=== PATIENT | male | born 1990 | race African-American/Black ===

== ENCOUNTER 2018-01-25 20:14 | Emergency (ER) | payer BC, SELFPAY ==
[2018-01-25] MEDS ORDERED: MORPHINE 4 MG/ML SYR ONE ×2 (20:48→23:39)
[2018-01-25] MEDS ORDERED: ONDANSETRON 4 MG/2 ML VIAL ONE (20:48)
--- NOTE | 2018-01-25 21:47 | RAD REPORT ---
EXAM DESCRIPTION: RAD - Humerus Right - 01/25/2018 9:17 pm CLINICAL HISTORY: Right arm pain status post injury FINDINGS: An oblique mildly to moderately displaced fracture involves the distal humeral shaft. Anoop ency surrounding the fracture site raises the possibility that this is a pathologic fracture
--- NOTE | 2018-01-25 22:27 | ER ---
Nurse's Notes [facility] Name: Marvin Hilario Age: 27 yrs Sex: Male : 1990 Arrival Date: 01/25/2018 Time: 20:15 Bed 4 Private MD: Diagnosis: Pathological fracture, humerus Presentation: 01/25 20:23 Presenting complaint: Patient states: playing softball, threw ball with right arm. pt ak1 stated he "felt and heard at snap" pain, swelling to right upper arm at 1930. Transition of care: patient was not received from another setting of care. Onset of symptoms was January 25, 2018. Risk Assessment: Do you want to hurt yourself or someone else? Patient reports no desire to harm self or others. Initial Sepsis Screen: Does the patient meet any 2 criteria? No. Patient's initial sepsis screen is negative. Does the patient have a suspected source of infection? No. Patient's initial sepsis screen is negative. Care prior to arrival: ice applied to side and arm in sling. 20:23 Method Of Arrival: Ambulatory ak1 20:23 Acuity: JOAQUIN 3 ak1 Triage Assessment: 20:25 General: Appears in no apparent distress. Behavior is calm, cooperative. ak1 20:25 Pain: Complains of pain in right bicep and right tricep. EENT: No signs and/or symptoms ak1 were reported regarding the EENT system. Neuro: No deficits noted. Cardiovascular: No deficits noted. Respiratory: No deficits noted. GI: No signs and/or symptoms were reported involving the gastrointestinal system. : No signs and/or symptoms were reported regarding the genitourinary system. Derm: No signs and/or symptoms reported regarding the dermatologic system. Musculoskeletal: Range of motion: intact in right shoulder and right elbow Swelling present in right bicep and right tricep. Historical: - Allergies: 20:25 No Known Allergies; ak1 - Home Meds: 20:25 None [Active]; ak1 - PMHx: 20:25 None; ak1 - PSHx: 20:25 oral sx; ak1 - Immunization history:: Adult Immunizations unknown. - Social history:: Smoking status: Patient uses tobacco products, smokes one-half pack cigarettes per day. - Ebola Screening: : No symptoms or risks identified at this time. Screenin:26 Abuse screen: Denies threats or abuse. Denies injuries from another. Nutritional ak1 screening: No deficits noted. Tuberculosis screening: No symptoms or risk factors identified. Fall Risk None identified. Assessment: 20:35 General: Appears in no apparent distress. comfortable, Behavior is calm, cooperative, aa1 appropriate for age. Pain: Complains of pain in right tricep and right bicep Pain currently is 7 out of 10 on a pain scale. Neuro: Level of Consciousness is awake, alert, obeys commands, Oriented to person, place, time, situation. Cardiovascular: Pulses are 3+ in right radial artery and left radial artery. Respiratory: Airway is patent is compromised Respiratory effort is even, unlabored, Respiratory pattern is regular, symmetrical. GI: No signs and/or symptoms were reported involving the gastrointestinal system. : No signs and/or symptoms were reported regarding the genitourinary system. EENT: No signs and/or symptoms were reported regarding the EENT system. Derm: Skin is intact, is healthy with good turgor, Skin is pink, warm \\T\\ dry. Musculoskeletal: Circulation, motion, and sensation intact. Capillary refill < 3 seconds, Range of motion: limited in right shoulder and right elbow Swelling present in right bicep. 21:34 Reassessment: Patient appears in no apparent distress at this time. Patient and/or aa1 family updated on plan of care and expected duration. Pain level reassessed. Patient is alert, oriented x 3, equal unlabored respirations, skin warm/dry/pink. Awaiting provider reassessment. 22:30 Reassessment: Patient appears in no apparent distress at this time. Patient and/or aa1 family updated on plan of care and expected duration. Pain level reassessed. Patient is alert, oriented x 3, equal unlabored respirations, skin warm/dry/pink. Transfer pending. 23:17 Reassessment: Patient appears in no apparent distress at this time. Patient and/or aa1 family updated on plan of care and expected duration. Pain level reassessed. Patient is alert, oriented x 3, equal unlabored respirations, skin warm/dry/pink. Report given to Eloisa Lucio RN at [facility]. 23:37 Reassessment: Patient appears in no apparent distress at this time. Patient is alert, aa1 oriented x 3, equal unlabored respirations, skin warm/dry/pink. [facility] present for transfer. Vital Signs: 20:22 BP 126 / 74; Pulse 93; Resp 20; Temp 98.5; Pulse Ox 98% on R/A; Weight 81.65 kg (R); ak1 Height 5 ft. 7 in. (170.18 cm) (R); Pain 7/10; 21:34 BP 139 / 94; Pulse 62; Resp 16; Pulse Ox 97% on R/A; Pain 3/10; aa1 22:30 BP 136 / 96; Pulse 60; Resp 18; Pulse Ox 99% on R/A; aa1 23:20 BP 126 / 87; Pulse 58; Resp 16; Pulse Ox 99% on R/A; Pain 3/10; aa1 20:22 Body Mass Index 28.19 (81.65 kg, 170.18 cm) ak1 ED Course: 20:15 Patient arrived in ED. es 20:23 Henry Hamilton PA is PHCP. jmm 20:23 Mehran Aguilar MD is Attending Physician. jmm 20:24 Triage completed. ak1 20:25 Arm band placed on Patient placed in an exam room, on a stretcher, Patient notified of ak1 wait time. 20:26 Patient has correct armband on for positive identification. Bed in low position. Call ak1 light in reach. Side rails up X 1. Adult w/ patient. 20:33 Inserted saline lock: 18 gauge in left antecubital area, using aseptic technique. Blood jw5 collected. 20:56 Starla Saleh, RN is Primary Nurse. aa1 21:17 Humerus Right XRAY In Process Unspecified. EDMS 22:23 Orthoglass splint: Coaptation splint applied on right arm. Sling applied to right arm. jw5 23:37 No provider procedures requiring assistance completed. Patient transferred, IV remains aa1 in place. Administered Medications: 20:45 Drug: morphine 4 mg Route: IVP; Site: left antecubital; aa1 23:24 Follow up: Response: No adverse reaction; Pain is decreased aa1 20:45 Drug: Zofran 4 mg Route: IVP; Site: left antecubital; aa1 23:25 Follow up: Response: No adverse reaction aa1 23:37 Drug: morphine 4 mg Route: IVP; Site: left antecubital; aa1 23:37 Follow up: Response: Medication administered at discharge. aa1 Outcome: 22:27 ER care complete, transfer ordered by MD. chau 23:37 Transferred by ground EMS to [facility], Transfer form completed. aa1 23:37 Condition: stable 23:37 Instructed on the need for transfer, Demonstrated understanding of instructions. 23:38 Patient left the ED. aa1 Signatures: Dispatcher [employer] Starla Sotomayor, RN RN aa1 Henry Hamilton PA PA jmm Salyer, Edna es Krenek, Amber RN RN ak1 Sary Hansen jw5 Corrections: (The following items were deleted from the chart) 23:25 23:22 Orthoglass splint: aa1 jw5
--- NOTE | 2018-01-25 22:27 | EDPHYS ---
Physician Documentation [facility] Name: Marvin Hilario Age: 27 yrs Sex: Male : 1990 Arrival Date: 01/25/2018 Time: 20:15 Bed 4 Private MD: ED Physician Mehran Aguilar HPI: 01/25 20:26 This 27 yrs old Black Male presents to ER via Ambulatory with complaints of Arm Injury. jmm 20:26 The patient or guardian complains of injury, pain. The complaints affect the right jmm bicep. Onset: The symptoms/episode began/occurred acutely, just prior to arrival. This is a 27 year old male with no chronic medical conditions that presents to the ED with right arm pain which developed after throwing a baseball. patient states that he felt a snap. denies other injury.. Historical: - Allergies: 20:25 No Known Allergies; ak1 - Home Meds: 20:25 None [Active]; ak1 - PMHx: 20:25 None; ak1 - PSHx: 20:25 oral sx; ak1 - Immunization history:: Adult Immunizations unknown. - Social history:: Smoking status: Patient uses tobacco products, smokes one-half pack cigarettes per day. - Ebola Screening: : No symptoms or risks identified at this time. ROS: 20:26 Constitutional: Negative for fever, chills, and weight loss, Cardiovascular: Negative jmm for chest pain, palpitations, and edema, Respiratory: Negative for shortness of breath, cough, wheezing, and pleuritic chest pain, Abdomen/GI: Negative for abdominal pain, nausea, vomiting, diarrhea, and constipation, Back: Negative for injury and pain, : Negative for injury, bleeding, discharge, and swelling. 20:26 MS/extremity: Positive for pain. 20:26 All other systems are negative. Exam: 20:26 Head/Face: atraumatic. Chest/axilla: Normal chest wall appearance and motion. jmm Cardiovascular: Regular rate and rhythm. No edema appreciated Respiratory: Normal respirations, no respiratory distress appreciated 20:26 Constitutional: The patient appears in no acute distress, alert, awake. 20:26 Musculoskeletal/extremity: crepitus noted at the mid humeral region, area is tender to palpation, full radial pulse, radial, ulnar, and median nervic intact, compartments are soft. . 20:26 Skin: Appearance: Color: normal in color. 20:26 Neuro: Orientation: is normal, Mentation: is normal, Memory: is normal. 20:26 Psych: Behavior/mood is pleasant, cooperative. Vital Signs: 20:22 BP 126 / 74; Pulse 93; Resp 20; Temp 98.5; Pulse Ox 98% on R/A; Weight 81.65 kg (R); ak1 Height 5 ft. 7 in. (170.18 cm) (R); Pain 7/10; 21:34 BP 139 / 94; Pulse 62; Resp 16; Pulse Ox 97% on R/A; Pain 3/10; aa1 22:30 BP 136 / 96; Pulse 60; Resp 18; Pulse Ox 99% on R/A; aa1 23:20 BP 126 / 87; Pulse 58; Resp 16; Pulse Ox 99% on R/A; Pain 3/10; aa1 20:22 Body Mass Index 28.19 (81.65 kg, 170.18 cm) ak1 Procedures: 22:27 Splinting: Splint applied to right arm using sling, coaptation splint. applied by kandi myself. tech. Examined by me, post splint application: neurovascular intact, 2+ distal pulses palpable, brisk capillary refill noted, Patient tolerated well. MDM: 20:26 Patient medically screened. [facility] 22:12 Data reviewed: vital signs, nurses notes. [facility] 22:25 Counseling: I had a detailed discussion with the patient and/or guardian regarding: the [facility] historical points, exam findings, and any diagnostic results supporting the discharge/admit diagnosis, radiology results, the need to transfer to another facility. ED course: Transfer was accepted by Dr. Dickens [facility]. 01/25 20:31 Order name: Humerus Right XRAY; Complete Time: 21:48 [facility] 01/25 21:48 Order name: Splint; Complete Time: 23:24 [facility] 01/25 21:48 Order name: Sling; Complete Time: 23:24 [facility] Administered Medications: 20:45 Drug: morphine 4 mg Route: IVP; Site: left antecubital; aa1 23:24 Follow up: Response: No adverse reaction; Pain is decreased aa1 20:45 Drug: Zofran 4 mg Route: IVP; Site: left antecubital; aa1 23:25 Follow up: Response: No adverse reaction aa1 23:37 Drug: morphine 4 mg Route: IVP; Site: left antecubital; aa1 23:37 Follow up: Response: Medication administered at discharge. aa1 Disposition: 01/26 06:38 Co-signature as Attending Physician, Mehran Aguilar MD I agree with the assessment and cody plan of care. Disposition: 01/25/18 22:27 Transfer ordered to [facility]. Diagnosis is Pathological fracture, humerus. - Reason for transfer: Higher level of care. - Accepting physician is Dr. Dickens. - Condition is Stable. - Problem is new. - Symptoms are unchanged. Signatures: Dispatcher [employer] EDMS Starla Saleh, RN RN aa1 Mehran Aguilar MD MD cha Mickail, Joel, PA PA Pooja Jay RN RN ak1 Corrections: (The following items were deleted from the chart) 01/25 23:38 22:27 01/25/2018 22:27 Transfer ordered to [facility]. aa1 Diagnosis is Pathological fracture, humerus. Reason for transfer: Higher level of care. Accepting physician is Dr. Dickens. Condition is Stable. Problem is new. Symptoms are unchanged. kandi
== END 2018-01-25 23:38 | disposition short-term general hospital (02) ==
LOC: ER 20:14
PROC: 2W38X1Z Immobilization of Right Upper Extremity using Splint (ICD-10-PCS; principal; 2018-01-25)
DX: M84.421A Pathological fracture, right humerus, initial encounter for fracture (principal); Y93.64 Activity, baseball; F17.210 Nicotine dependence, cigarettes, uncomplicated
CPT/HCPCS: 96374; 96375; 99285; J2405